=== PATIENT | female | born 1995 | race Native Hawaiian/Other Pacific Islander ===

== ENCOUNTER 2019-11-10 22:02 | Emergency (ER) | payer OTHER ==
[~2019-11-10] VITALS: Ht 157.5 cm; Wt 90.7 kg
[2019-11-10 23:01] LABS: PLATELET COUNT 333 K/uL (152-353)
[2019-11-10 23:06] LABS: POTASSIUM 4.4 mmol/L (3.6-5.2); SODIUM 140 mmol/L (136-145)
[2019-11-10 23:58] VITALS: BP 146/84; TEMP 98.9
== END 2019-11-11 | disposition home or self-care (01) ==
LOC: ED 22:02
PROVIDERS: Hospitalist
DX: R07.89 Other chest pain (principal); K21.9 Gastro-esophageal reflux disease without esophagitis; N30.80 Other cystitis without hematuria; R42 Dizziness and giddiness
CPT/HCPCS: 80053; 80320; 81000; 81025; 82550; 83880; 84484; 85027; 85610; 85730; 93005; 96360; 96375; 99284; J1885; J2405

== ENCOUNTER 2020-11-30 17:01 | Emergency (ER) | payer OTHER ==
[~2020-11-30] VITALS: Ht 157.5 cm; Wt 90.7 kg
[2020-11-30 17:10] VITALS: TEMP 98.8
[2020-11-30 18:11] VITALS: BP 129/75
== END 2020-11-30 18:11 | disposition home or self-care (01) ==
LOC: ED 17:01
DX: S63.8X1A Sprain of other part of right wrist and hand, initial encounter (principal); W18.39XA Other fall on same level, initial encounter; Y92.098 Other place in other non-institutional residence as the place of occurrence of the external cause
CPT/HCPCS: 96372; 99283; J1885

== ENCOUNTER 2020-12-28 07:15 | Emergency (ER) | payer OTHER ==
[~2020-12-28] VITALS: Ht 157.5 cm; Wt 83.9 kg
[2020-12-28 07:21] VITALS: BP 142/89; TEMP 97.3
== END 2020-12-28 08:55 | disposition home or self-care (01) ==
LOC: ED 07:15
DX: J06.9 Acute upper respiratory infection, unspecified (principal); Z20.822 Contact with and (suspected) exposure to COVID-19; E66.8 Other obesity
CPT/HCPCS: 87635; 87651; 96372; 99283; J0696; J1100; U0003

== ENCOUNTER 2021-01-30 08:51 | Emergency (ER) | payer OTHER ==
[~2021-01-30] VITALS: Ht 157.5 cm; Wt 86.2 kg
[2021-01-30 11:20] VITALS: BP 123/84; TEMP 97.6
== END 2021-01-30 11:20 | disposition home or self-care (01) ==
LOC: ED 08:51
DX: M79.18 Myalgia, other site (principal)
CPT/HCPCS: 81025; 96372; 99283; J1885

== ENCOUNTER 2021-04-15 16:04 | Emergency (ER) | payer OTHER ==
[~2021-04-15] VITALS: Ht 157.5 cm; Wt 83.9 kg
[2021-04-15 16:10] VITALS: BP 125/80; TEMP 98.2
== END 2021-04-15 17:50 | disposition home or self-care (01) ==
LOC: ED 16:04
DX: Z11.3 Encounter for screening for infections with a predominantly sexual mode of transmission (principal)
CPT/HCPCS: 81000; 87490; 87590; 96372; 99283; 99284; J0696

== ENCOUNTER 2022-05-09 12:43 | Emergency (ER) | payer OTHER ==
[~2022-05-09] VITALS: Ht 157.5 cm; Wt 78.9 kg
[2022-05-09 12:47] VITALS: BP 154/101; TEMP 98.8
== END 2022-05-09 15:20 | disposition home or self-care (01) ==
LOC: ED 12:43
DX: S46.811A Strain of other muscles, fascia and tendons at shoulder and upper arm level, right arm, initial encounter (principal); W18.39XA Other fall on same level, initial encounter; Y92.830 Public park as the place of occurrence of the external cause
CPT/HCPCS: 81025; 99282; 99283; J1885